=== PATIENT | male | born 1945 | race Caucasian/White ===

== ENCOUNTER 2019-07-03 15:05 | Emergency (ER) | payer MEDICARE ==
[~2019-07-03] VITALS: Ht 180.3 cm; Wt 8.2 kg
[2019-07-03] MEDS ORDERED: ALBU18HF2 INH (16:50)
[2019-07-03] MEDS ORDERED: PRED20TA PO (16:50)
[2019-07-03] MEDS ORDERED: DOXY100C43 PO (16:50)
[2019-07-03 16:58] VITALS: BP 161/87
== END 2019-07-03 16:59 | disposition home or self-care (01) ==
LOC: ER 15:06
DX: J20.9 Acute bronchitis, unspecified (principal); J06.9 Acute upper respiratory infection, unspecified; F17.200 Nicotine dependence, unspecified, uncomplicated; Z79.899 Other long term (current) drug therapy
CPT/HCPCS: 71046; 99283

== ENCOUNTER 2019-09-03 11:37 | Emergency (ER) | payer BC, MEDICARE ==
[~2019-09-03] VITALS: Ht 180.3 cm; Wt 89.6 kg
[~2019-09-03 11:37] MED LIST: ALBU18HF2 INH
[2019-09-03 11:44] VITALS: BP 142/71
[2019-09-03] MEDS ORDERED: DOXY100C43 PO (12:52)
[2019-09-03] MEDS ORDERED: ALBU8HFA PO (13:09)
== END 2019-09-03 13:13 | disposition home or self-care (01) ==
LOC: ER 11:38
DX: J20.9 Acute bronchitis, unspecified (principal); Z79.899 Other long term (current) drug therapy
CPT/HCPCS: 99283

== ENCOUNTER 2022-12-19 14:24 | Emergency (ER) | payer BC ==
[~2022-12-19] VITALS: Ht 180.3 cm; Wt 86.4 kg
[~2022-12-19 14:24] MED LIST changes: -ALBU18HF2 INH; +ASPI81TA53 PO; +ATOR20TA PO; +CARV3.12 PO; +FURO-150 PO; +LISI2.5T14 PO; +POTA-206 PO
[2022-12-19 15:03] LABS: BASOPHILS # (AUTO) 0.1 X10'3 (0-0.2); BASOPHILS % (AUTO) 0.5 % (0-1); EOSINOPHILS # (AUTO) 0.1 X10'3 (0-0.9); EOSINOPHILS % (AUTO) 0.8 % (0-6); HEMATOCRIT 39.6 % (42.0-52.0); HEMOGLOBIN 12.8 g/dl (14.0-17.9); LYMPHOCYTES # (AUTO) 1.6 X10'3 (1.1-4.8); LYMPHOCYTES % (AUTO) 13.5 % (21-51); MEAN CORPUSCULAR HEMOGLOBIN 34.3 PG (27.0-31.0); MEAN CORPUSCULAR HGB CONC 32.4 g/dL (33.0-36.5); MEAN CORPUSCULAR VOLUME 105.8 FL (78-98); MEAN PLATELET VOLUME 8.2 FL (7.4-10.4); MONOCYTES # (AUTO) 1.6 X10'3 (0-0.9); MONOCYTES % (AUTO) 14.3 % (2-12); NEUTROPHILS # (AUTO) 8.1 X10'3 (1.8-7.7); NEUTROPHILS % (AUTO) 70.9 % (42-75); PLATELET COUNT 321 X10'3 (140-440); RED BLOOD COUNT 3.74 X10'6 (4.70-6.10); RED CELL DISTRIBUTION WIDTH 13.8 % (11.5-14.5); WHITE BLOOD COUNT 11.5 X10'3 (4.5-11.0)
[2022-12-19 15:18] LABS: ALANINE AMINOTRANSFERASE 82 U/L (12-78); ALBUMIN 3.2 G/DL (3.4-5.0); ALKALINE PHOSPHATASE 94 IU/L (46-116); ANION GAP 10 (8-16); ASPARTATE AMINO TRANSFERASE 50 U/L (10-37); BILIRUBIN,TOTAL 0.8 MG/DL (0.1-1.0); BLOOD UREA NITROGEN 22 MG/DL (7-18); BUN/CREATININE RATIO 22.4 (10.0-20.0); CALCIUM 8.5 MG/DL (8.5-10.1); CHLORIDE 96 MMOL/L (99-107); CREATININE 0.98 MG/DL (0.60-1.10); GLUCOSE 120 MG/DL (70-104); POTASSIUM 4.1 MMOL/L (3.5-5.1); SODIUM 132 MMOL/L (135-145); TOTAL CARBON DIOXIDE 26.2 MMOL/L (24-32); TOTAL PROTEIN 6.3 G/DL (6.4-8.2); eGFR 74 ML/MIN
--- NOTE | 2022-12-19 15:54 | NUR ---
US TECH AT BEDSIDE
[2022-12-19 16:40] VITALS: BP 108/62
== END 2022-12-19 16:41 | disposition home or self-care (01) ==
LOC: ER 14:24
DX: R60.0 Localized edema (principal); I11.0 Hypertensive heart disease with heart failure; I50.9 Heart failure, unspecified; E78.00 Pure hypercholesterolemia, unspecified; Z72.89 Other problems related to lifestyle; Z79.899 Other long term (current) drug therapy; Z79.82 Long term (current) use of aspirin
CPT/HCPCS: 36415; 80053; 83880; 85025; 93971; 99284

== ENCOUNTER 2023-01-01 15:33 | Emergency (ER) | payer BC ==
[~2023-01-01] VITALS: Ht 177.8 cm; Wt 84.1 kg
[2023-01-01 15:40] VITALS: BP 90/54
[2023-01-01 17:30] LABS: BASOPHILS % (AUTO) 0.5 % (0-1); EOSINOPHILS # (AUTO) 0.1 X10'3 (0-0.9); EOSINOPHILS % (AUTO) 2.2 % (0-6); HEMATOCRIT 36.5 % (42.0-52.0); HEMOGLOBIN 12.3 g/dl (14.0-17.9); LYMPHOCYTES # (AUTO) 0.9 X10'3 (1.1-4.8); LYMPHOCYTES % (AUTO) 13.1 % (21-51); MEAN CORPUSCULAR HGB CONC 33.5 g/dL (33.0-36.5); MEAN CORPUSCULAR VOLUME 101.3 FL (78-98); MEAN PLATELET VOLUME 7.5 FL (7.4-10.4); MONOCYTES % (AUTO) 15.6 % (2-12); NEUTROPHILS # (AUTO) 4.5 X10'3 (1.8-7.7); NEUTROPHILS % (AUTO) 68.6 % (42-75); PLATELET COUNT 394 X10'3 (140-440); RED BLOOD COUNT 3.61 X10'6 (4.70-6.10); RED CELL DISTRIBUTION WIDTH 14.3 % (11.5-14.5); WHITE BLOOD COUNT 6.5 X10'3 (4.5-11.0)
[2023-01-01 17:34] LABS: ALANINE AMINOTRANSFERASE 49 U/L (12-78); ALBUMIN 2.8 G/DL (3.4-5.0); ALBUMIN/GLOBULIN RATIO 0.8 (1.1-1.5); ALKALINE PHOSPHATASE 142 IU/L (46-116); ANION GAP 9 (8-16); ASPARTATE AMINO TRANSFERASE 56 U/L (10-37); BILIRUBIN,TOTAL 0.8 MG/DL (0.1-1.0); BLOOD UREA NITROGEN 30 MG/DL (7-18); BUN/CREATININE RATIO 17.6 (10.0-20.0); CHLORIDE 90 MMOL/L (99-107); GLUCOSE 131 MG/DL (70-104); POTASSIUM 4.5 MMOL/L (3.5-5.1); SODIUM 125 MMOL/L (135-145); TOTAL CARBON DIOXIDE 25.8 MMOL/L (24-32); TOTAL PROTEIN 6.5 G/DL (6.4-8.2); eGFR 39 ML/MIN
== END 2023-01-01 20:05 | disposition left against medical advice (07) ==
LOC: ER 15:34
DX: M79.89 Other specified soft tissue disorders (principal); Z53.21 Procedure and treatment not carried out due to patient leaving prior to being seen by health care provider
CPT/HCPCS: 36415; 80053; 83605; 84145; 85025; 87040; 99281

== ENCOUNTER 2023-01-03 11:19 | Emergency (ER) | payer BC ==
[~2023-01-03] VITALS: Ht 177.8 cm; Wt 86.4 kg
[2023-01-03] MEDS ORDERED: ampicillin/sulbac 3gm/NS 100ml 100 ML IV SCH (14:45)
[2023-01-03] MEDS ORDERED: vancomycin inj 1,000 MG in normal saline 250ml IV soln 250 ML IV ONE (14:45)
[2023-01-03] MEDS ORDERED: furosemide 10 MG/1 ML 10ml inj IV ONE (14:45)
[2023-01-03] MEDS ORDERED: furosemide 20 MG/2 ML vial IV ONE (15:05)
[2023-01-03] MEDS ORDERED: vancomycin/NS 1 GM ADD-VANTAGE 250 ML X 1 DOSE IV ONE (15:05)
[2023-01-03] MEDS ORDERED: ampicillin/sulbac 3gm/NS 100ml 100 ML IV ONE (15:10)
[2023-01-03 15:22] LABS: BASOPHILS % (AUTO) 0.3 % (0-1); EOSINOPHILS % (AUTO) 0.3 % (0-6); HEMATOCRIT 34.3 % (42.0-52.0); HEMOGLOBIN 11.6 g/dl (14.0-17.9); LYMPHOCYTES # (AUTO) 0.4 X10'3 (1.1-4.8); LYMPHOCYTES % (AUTO) 3.9 % (21-51); MEAN CORPUSCULAR HEMOGLOBIN 34.1 PG (27.0-31.0); MEAN CORPUSCULAR HGB CONC 33.7 g/dL (33.0-36.5); MEAN CORPUSCULAR VOLUME 101.2 FL (78-98); MEAN PLATELET VOLUME 7.5 FL (7.4-10.4); MONOCYTES # (AUTO) 1.1 X10'3 (0-0.9); MONOCYTES % (AUTO) 9.7 % (2-12); NEUTROPHILS # (AUTO) 9.7 X10'3 (1.8-7.7); NEUTROPHILS % (AUTO) 85.8 % (42-75); PLATELET COUNT 403 X10'3 (140-440); RED BLOOD COUNT 3.39 X10'6 (4.70-6.10); RED CELL DISTRIBUTION WIDTH 14.2 % (11.5-14.5); WHITE BLOOD COUNT 11.4 X10'3 (4.5-11.0)
[2023-01-03 15:34] LABS: ALANINE AMINOTRANSFERASE 41 U/L (12-78); ALBUMIN 2.8 G/DL (3.4-5.0); ALBUMIN/GLOBULIN RATIO 0.7 (1.1-1.5); ALKALINE PHOSPHATASE 158 IU/L (46-116); ANION GAP 11 (8-16); ASPARTATE AMINO TRANSFERASE 29 U/L (10-37); BILIRUBIN,TOTAL 0.9 MG/DL (0.1-1.0); BLOOD UREA NITROGEN 45 MG/DL (7-18); BUN/CREATININE RATIO 21.2 (10.0-20.0); CALCIUM 9.2 MG/DL (8.5-10.1); CHLORIDE 87 MMOL/L (99-107); CREATININE 2.12 MG/DL (0.60-1.10); GLUCOSE 110 MG/DL (70-104); MAGNESIUM 2.4 MG/DL (1.5-2.4); SODIUM 122 MMOL/L (135-145); TOTAL CARBON DIOXIDE 24.5 MMOL/L (24-32); TOTAL PROTEIN 6.9 G/DL (6.4-8.2); eGFR 30 ML/MIN
[2023-01-03] MEDS ORDERED: propofol 10mg/ml 20ml vial IV ONE (15:40)
[2023-01-03] MEDS ORDERED: SULF1TAB49 PO (18:44)
[2023-01-03] MEDS ORDERED: AMOX-580 PO (18:44)
[2023-01-03] MEDS ORDERED: FURO-149 PO (18:44)
[2023-01-03 18:45] VITALS: BP 148/85
--- NOTE | 2023-01-03 18:49 | NUR ---
cleaned wonds to RLE with NS and dressed with non-adhearant dressing and gauze. Pt instructed on importance of strict follow up for wound care.
== END 2023-01-03 18:57 | disposition home or self-care (01) ==
LOC: ER 11:19
DX: L03.115 Cellulitis of right lower limb (principal); I48.20 Chronic atrial fibrillation, unspecified; E78.00 Pure hypercholesterolemia, unspecified; I11.9 Hypertensive heart disease without heart failure; Z87.81 Personal history of (healed) traumatic fracture; Z79.899 Other long term (current) drug therapy; Z79.1 Long term (current) use of non-steroidal anti-inflammatories (NSAID)
CPT/HCPCS: 36415; 80053; 83605; 83735; 84145; 84484; 85025; 87040; 93005; 93971; 96365; 96366; 96375; 99285; A6223; J0295; J1940; J3370; J7030; 94760; A4615; A6258; A6446; A6449

== ENCOUNTER 2023-04-26 04:40 | Emergency (ER) | payer BC ==
[~2023-04-26] VITALS: Ht 177.8 cm; Wt 79.1 kg
[~2023-04-26 04:40] MED LIST changes: +FURO-149 PO
[2023-04-26] MEDS ORDERED: tranexamic acid inj. 1,000 MG in normal saline 100ml IV soln 90 ML IV ONE (08:00)
[2023-04-26] MEDS ORDERED: KCentra-PCC 500 unit/20mL vial 0 ML IV ONE (08:20)
--- NOTE | 2023-04-26 08:24 | NUR ---
Patient seen by Dr. Morales, patient was told he has rain bleed. Patient repeatedly saying he needs to be home in a few hours. Patient was told that his brain bleed is serious and we could not send him home like this and that he needs treatment. Per charge nurse Yamileth, Dr. Morales wanted patient to be transfer to [facility] for further management
--- NOTE | 2023-04-26 08:32 | NUR ---
Called pharmacist to request for the TXA ordered to deliver SLOANE
[2023-04-26] MEDS ORDERED: HUM PROTHROMBIN CPLX IV ONE ×2 (08:40→08:50)
[2023-04-26] MEDS ORDERED: [UNRECOGNIZED DRUG - OTHER] IV ONE (08:40)
--- NOTE | 2023-04-26 08:49 | NUR ---
Called pharmacy to follow up about the KCentra IV ordered. I was told its almost ready and will send someone to bring it to ER
[2023-04-26] MEDS ORDERED: [UNRECOGNIZED DRUG - OTHER] IV ONE (08:50)
[2023-04-26 08:53] LABS: BASOPHILS # (AUTO) 0.1 X10'3 (0-0.2); BASOPHILS % (AUTO) 1.1 % (0-1); EOSINOPHILS # (AUTO) 0.1 X10'3 (0-0.9); EOSINOPHILS % (AUTO) 1.2 % (0-6); HEMATOCRIT 33.2 % (42.0-52.0); HEMOGLOBIN 11.1 g/dl (14.0-17.9); LYMPHOCYTES # (AUTO) 1.6 X10'3 (1.1-4.8); LYMPHOCYTES % (AUTO) 35.7 % (21-51); MEAN CORPUSCULAR HEMOGLOBIN 31.4 PG (27.0-31.0); MEAN CORPUSCULAR HGB CONC 33.3 g/dL (33.0-36.5); MEAN CORPUSCULAR VOLUME 94.3 FL (78-98); MEAN PLATELET VOLUME 8.7 FL (7.4-10.4); MONOCYTES # (AUTO) 0.8 X10'3 (0-0.9); MONOCYTES % (AUTO) 16.8 % (2-12); NEUTROPHILS # (AUTO) 2.1 X10'3 (1.8-7.7); NEUTROPHILS % (AUTO) 45.2 % (42-75); PLATELET COUNT 189 X10'3 (140-440); RED BLOOD COUNT 3.52 X10'6 (4.70-6.10); RED CELL DISTRIBUTION WIDTH 15.8 % (11.5-14.5); WHITE BLOOD COUNT 4.6 X10'3 (4.5-11.0)
[2023-04-26 09:09] LABS: APTT 30 SECONDS (22-32); PROTHROMBIN TIME 10.3 SECONDS (9.0-12.0)
--- NOTE | 2023-04-26 09:13 | NUR ---
I called pharmacist to clarify the KCentra IV ordered. Per pharmacist, she already spoke to Dr. Morales about the KCentra order that [facility] supposed to be given IV infusion not IV bolus. Per pharmacist, KCentra should be infused at 568.8 ml/hr per calculation
[2023-04-26 09:14] LABS: ALANINE AMINOTRANSFERASE 49 U/L (12-78); ALBUMIN 3.1 G/DL (3.4-5.0); ALBUMIN/GLOBULIN RATIO 0.8 (1.1-1.5); ALKALINE PHOSPHATASE 84 IU/L (46-116); ANION GAP 7 (8-16); BILIRUBIN,TOTAL 0.6 MG/DL (0.1-1.0); BLOOD UREA NITROGEN 9 MG/DL (7-18); BUN/CREATININE RATIO 9.3 (10.0-20.0); CALCIUM 8.4 MG/DL (8.5-10.1); CHLORIDE 96 MMOL/L (99-107); CREATININE 0.97 MG/DL (0.60-1.10); GLUCOSE 113 MG/DL (70-104); SODIUM 130 MMOL/L (135-145); TOTAL CARBON DIOXIDE 27.5 MMOL/L (24-32); TOTAL PROTEIN 6.9 G/DL (6.4-8.2); eCRCL 63 ML/MIN; eGFR 74 ML/MIN
[2023-04-26 09:16] LABS: ASPARTATE AMINO TRANSFERASE 79 U/L (10-37); POTASSIUM 4.8 MMOL/L (3.5-5.1)
--- NOTE | 2023-04-26 09:45 | NUR ---
Hands off report given to the EMS. Patient getting ready for transfer to [facility]
[2023-04-26 09:47] VITALS: BP 110/88; PULSE 116; RESP 20; TEMP 97.7; O2SAT 93
== END 2023-04-26 09:59 | disposition short-term general hospital (02) ==
LOC: ER 04:41
DX: S00.03XA Contusion of scalp, initial encounter (principal); W18.39XA Other fall on same level, initial encounter; Y93.89 Activity, other specified; Y92.89 Other specified places as the place of occurrence of the external cause; Y99.8 Other external cause status
CPT/HCPCS: 70450; 72125; 80053; 85025; 85610; 85730; 93005; 96365; 96368; 99285; J3490; J7168